=== PATIENT | female | born 1960 | race Caucasian/White ===

== ENCOUNTER 2016-11-16 20:32 | Emergency (ER) | payer BC ==
[~2016-11-16] VITALS: Ht 170.2 cm; Wt 56.2 kg
[2016-11-16 20:55] VITALS: BP 139/59
--- NOTE | 2016-11-16 21:00 | NUR ---
DR. YO AT BEDSIDE FOR EVAL.
== END 2016-11-16 21:25 | disposition home or self-care (01) ==
LOC: ER 20:35
DX: M70.21 Olecranon bursitis, right elbow (principal); Y93.9 Activity, unspecified
CPT/HCPCS: A4606; Z7610